=== PATIENT | female | born 1985 | race Caucasian/White ===

== ENCOUNTER 2017-11-15 01:06 | Emergency (ER) | payer MEDICAID ==
[~2017-11-15] VITALS: Ht 154.9 cm; Wt 78.2 kg
[2017-11-15] MEDS ORDERED: CLOT12CR TOP (01:34)
[2017-11-15 01:45] VITALS: BP 135/81
== END 2017-11-15 02:09 | disposition home or self-care (01) ==
LOC: ER 01:08
DX: B35.3 Tinea pedis (principal); F15.10 Other stimulant abuse, uncomplicated; F11.10 Opioid abuse, uncomplicated; Z98.890 Other specified postprocedural states; Z90.89 Acquired absence of other organs
CPT/HCPCS: 99282

== ENCOUNTER 2018-08-30 05:57 | Emergency (ER) | payer MEDICAID ==
[~2018-08-30] VITALS: Ht 157.5 cm; Wt 75.6 kg
[~2018-08-30 05:57] MED LIST: CLOT12CR TOP
[2018-08-30 07:31] VITALS: BP 121/79
== END 2018-08-30 07:34 | disposition home or self-care (01) ==
LOC: ER 05:58
DX: N93.8 Other specified abnormal uterine and vaginal bleeding (principal); F15.90 Other stimulant use, unspecified, uncomplicated; Z98.890 Other specified postprocedural states; Z90.89 Acquired absence of other organs
CPT/HCPCS: 99281; 99283

== ENCOUNTER 2019-09-25 20:23 | Emergency (ER) | payer MEDICAID ==
[~2019-09-25] VITALS: Ht 157.5 cm; Wt 78.2 kg
[2019-09-25] MEDS ORDERED: ketorolac trometh inj. 60 MG/2 ML VIAL IM ONE (21:05)
[2019-09-25] MEDS ORDERED: IBUP-1985 PO (21:22)
[2019-09-25 21:39] VITALS: BP 132/94
== END 2019-09-25 21:41 | disposition home or self-care (01) ==
LOC: ER 20:23
DX: S66.911A Strain of unspecified muscle, fascia and tendon at wrist and hand level, right hand, initial encounter (principal); F15.90 Other stimulant use, unspecified, uncomplicated; Z98.890 Other specified postprocedural states; Z79.2 Long term (current) use of antibiotics; X58.XXXA Exposure to other specified factors, initial encounter; Y93.89 Activity, other specified; Y92.89 Other specified places as the place of occurrence of the external cause; Y99.8 Other external cause status
CPT/HCPCS: 73100; 96372; 99283; J1885

== ENCOUNTER 2020-08-24 14:52 | Emergency (ER) | payer MEDICAID ==
[~2020-08-24] VITALS: Ht 157.5 cm; Wt 75.0 kg
[~2020-08-24 14:52] MED LIST changes: +IBUP-1985 PO
[2020-08-24 15:07] VITALS: BP 123/81
[2020-08-24] MEDS ORDERED: penicillin G benzathine 1.2 million unit/2ml syringe IM ONE (16:00)
== END 2020-08-24 17:02 | disposition home or self-care (01) ==
LOC: ER 14:52
DX: A63.8 Other specified predominantly sexually transmitted diseases (principal); F15.90 Other stimulant use, unspecified, uncomplicated; Z90.89 Acquired absence of other organs; Z98.890 Other specified postprocedural states; Z72.89 Other problems related to lifestyle; Z79.2 Long term (current) use of antibiotics
CPT/HCPCS: 36415; 86592; 96372; 99283; J0561

== ENCOUNTER 2021-12-19 23:49 | Emergency (ER) | payer MEDICAID ==
[~2021-12-19] VITALS: Ht 157.5 cm; Wt 72.7 kg
[2021-12-19 23:59] VITALS: BP 143/96
--- NOTE | 2021-12-20 01:25 | NUR ---
PT ROOMED IN BED 12. ASSUMED CARE OF PT AT THIS TIME.
[2021-12-20] MEDS ORDERED: DOXYCYCLINE 100MG CAPSULE PO STA (03:00)
[2021-12-20] MEDS ORDERED: DOXY-411 PO (03:03)
[2021-12-20] MEDS ORDERED: rifampin 300mg capsule PO SCH (08:00)
== END 2021-12-20 03:50 | disposition home or self-care (01) ==
LOC: ER 23:50
DX: L03.115 Cellulitis of right lower limb (principal); F15.10 Other stimulant abuse, uncomplicated; Z79.899 Other long term (current) drug therapy
CPT/HCPCS: 99283

== ENCOUNTER 2023-04-16 23:43 | Emergency (ER) | payer MEDICAID ==
[~2023-04-16] VITALS: Ht 157.5 cm; Wt 75.0 kg
[2023-04-16 23:46] VITALS: BP 111/87
[2023-04-17] MEDS ORDERED: LOPE2TAB25 PO (00:43)
[2023-04-17] MEDS ORDERED: loperamide 2mg capsule PO ONE (00:45)
== END 2023-04-17 00:55 | disposition home or self-care (01) ==
LOC: ER 23:44
DX: R19.7 Diarrhea, unspecified (principal); F15.20 Other stimulant dependence, uncomplicated; Z98.890 Other specified postprocedural states
CPT/HCPCS: 99282

== ENCOUNTER 2025-01-03 13:19 | Outpatient (CLI) | payer MEDICAID ==
[~2025-01-03 13:19] MED LIST changes: +LOPE2TAB25 PO
== END 2025-01-03 23:59 | disposition home or self-care (01) ==
LOC: RAD 13:19
PROVIDERS: ATTEND Physician Assistant
DX: F11.20 Opioid dependence, uncomplicated (principal); I49.8 Other specified cardiac arrhythmias
CPT/HCPCS: 93005

== ENCOUNTER 2025-01-06 18:04 | Emergency (ER) | payer MEDICAID ==
[~2025-01-06] VITALS: Ht 157.5 cm; Wt 81.8 kg
[2025-01-06] MEDS ORDERED: DOXY-224 PO (19:36)
[2025-01-06] MEDS ORDERED: TRIA15CR61 TOP (19:36)
[2025-01-06 19:55] VITALS: BP 130/86; PULSE 82; RESP 18; TEMP 98.5; O2SAT 98
== END 2025-01-06 19:57 | disposition home or self-care (01) ==
LOC: ER 18:05
DX: L98.9 Disorder of the skin and subcutaneous tissue, unspecified (principal); A53.9 Syphilis, unspecified; F15.90 Other stimulant use, unspecified, uncomplicated; Z98.890 Other specified postprocedural states; Z79.899 Other long term (current) drug therapy; Z72.89 Other problems related to lifestyle
CPT/HCPCS: 99283

== ENCOUNTER 2025-01-13 15:23 | Outpatient (CLI) | payer MEDICAID ==
[~2025-01-13 15:23] MED LIST changes: +DOXY-224 PO; +TRIA15CR61 TOP
== END 2025-01-13 23:59 | disposition home or self-care (01) ==
LOC: RAD 15:23
PROVIDERS: ATTEND Physician Assistant
DX: R00.1 Bradycardia, unspecified (principal); F11.20 Opioid dependence, uncomplicated
CPT/HCPCS: 93005